=== PATIENT | female | born 1975 | race Two or more races ===

== ENCOUNTER 2022-08-15 09:43 | Emergency (ER) | payer MEDICAID, OTHER ==
[~2022-08-15] VITALS: Ht 170.2 cm; Wt 93.5 kg
[2022-08-15 10:49] VITALS: BP 135/71
[2022-08-15 11:02] LABS: Urine Bacteria FEW /hpf (None Seen); Urine Blood TRACE /uL (Negative); Urine Mucus FEW (None Seen); Urine Specific Gravity 1.018 (1.001-1.035); Urine WBC 4 /hpf (0 - 5)
[2022-08-15] MEDS ORDERED: ACYC-166 PO (11:22)
[2022-08-15] MEDS ORDERED: IBUP800T27 PO (11:22)
[2022-08-15] MEDS ORDERED: BACDST PO (11:22)
== END 2022-08-15 11:27 | disposition home or self-care (01) ==
LOC: ER 09:43
DX: B02.9 Zoster without complications (principal); N39.0 Urinary tract infection, site not specified; Z79.899 Other long term (current) drug therapy
CPT/HCPCS: 71045; 81001

== ENCOUNTER 2023-04-07 08:17 | Emergency (ER) | payer MEDICAID ==
[~2023-04-07] VITALS: Ht 170.2 cm; Wt 95.9 kg
[~2023-04-07 08:17] MED LIST: ACYC1TAB3 PO; BACDST PO; IBUP-1456 PO
[2023-04-07 09:14] LABS: Basophils # (auto) 0.1 10 ^3/uL (0-0.2); Eosinophils # (auto) 0.1 10 ^3/uL (0-0.8); Eosinophils % (auto) 1.4 % (0.0-7.0); Hemoglobin 15.6 g/dL (12.2-16.2); Lymphocytes # (auto) 2.2 10 ^3/uL (0.4-5.4); Lymphocytes % (auto) 25.8 % (10.0-50.0); Mean Corpuscular Hgb Conc. 33.9 g/dL (32.0-36.0); Mean Corpuscular Volume 88.4 fL (80.0-100.0); Monocytes # (auto) 0.7 10 ^3/uL (0-1.3); Monocytes % (auto) 7.9 % (0.0-12.0); Neutrophils # (auto) 5.5 10 ^3/uL (1.6-8.6); Neutrophils % (auto) 63.9 % (37.0-80.0); Nucleated Red Blood Cells % 0.1 %; Red Cell Distribution Width 13.6 % (11.8-14.3); White Blood Cell 8.5 10^3/uL (4.4-10.8)
[2023-04-07 09:24] LABS: Urine Bacteria NONE SEEN /hpf (None Seen); Urine Blood Negative /uL (Negative); Urine Clarity CLOUDY (Clear); Urine Color Colorless (Yellow); Urine Protein, UAD TRACE (Negative); Urine Specific Gravity 1.037 (1.001-1.035); Urine Sperm PRESENT /hpf (None Seen); Urine Urobilinogen Normal (Negative); Urine WBC 21 /hpf (0 - 5); Urine pH 5.5 (5.0-8.0)
[2023-04-07 09:26] LABS: Alanine Aminotransferase 74 U/L (7-40); Albumin 4.4 g/dL (3.2-4.8); Alkaline Phosphatase 139 U/L (46-116); Anion Gap 8 (5-15); Aspartate Aminotransferase 41 U/L (13-40); Blood Urea Nitrogen 16 mg/dL (9-23); Calcium 9.5 mg/dL (8.5-10.1); Carbon Dioxide 26 mmol/L (20-30); Chloride 100 mmol/L (98-107); Potassium 4.4 mmol/L (3.5-5.1); Sodium 134 mmol/L (136-145)
[2023-04-07 09:27] LABS: Bilirubin, Total 0.8 mg/dL (0.2-1.0); Total Protein 7.2 g/dL (5.7-8.2)
[2023-04-07 09:32] LABS: Glucose 408 mg/dL (74-106)
[2023-04-07] MEDS ORDERED: CIPR-173 PO (09:40)
[2023-04-07] MEDS ORDERED: SODIUM CHLORIDE 0.9% 1,000 ML IV ONE (09:45)
[2023-04-07] MEDS ORDERED: cefTRIAXone 1GM/50ML D5W 50 ML IV ONE (09:45)
[2023-04-07 10:50] LABS: Lipase 48 U/L (12-53)
[2023-04-07 10:52] VITALS: BP 122/77; PULSE 72; RESP 15; TEMP 98; O2SAT 99
== END 2023-04-07 10:56 | disposition home or self-care (01) ==
LOC: ER 08:17
DX: N39.0 Urinary tract infection, site not specified (principal); R10.2 Pelvic and perineal pain; I10 Essential (primary) hypertension; E11.9 Type 2 diabetes mellitus without complications; E78.5 Hyperlipidemia, unspecified; Z98.890 Other specified postprocedural states; Z79.1 Long term (current) use of non-steroidal anti-inflammatories (NSAID); Z79.899 Other long term (current) drug therapy
CPT/HCPCS: 36415; 76705; 80053; 81001; 83690; 84702; 85025; 96365; 99285; J0696

== ENCOUNTER 2023-09-10 09:25 | Emergency (ER) | payer MEDICAID ==
[~2023-09-10] VITALS: Ht 170.2 cm; Wt 90.0 kg
[~2023-09-10 09:25] MED LIST changes: +CIPR-173 PO
[2023-09-10] MEDS ORDERED: NAP500T PO (11:27)
[2023-09-10 11:41] VITALS: BP 121/87; PULSE 74; RESP 12; TEMP 97.8; O2SAT 99
== END 2023-09-10 11:55 | disposition home or self-care (01) ==
LOC: ER 09:25
DX: R51.9 Headache, unspecified (principal); I10 Essential (primary) hypertension; E11.9 Type 2 diabetes mellitus without complications; E78.5 Hyperlipidemia, unspecified

== ENCOUNTER 2024-04-08 09:36 | Emergency (ER) | payer MEDICAID ==
[~2024-04-08] VITALS: Ht 170.2 cm; Wt 88.4 kg
[~2024-04-08 09:36] MED LIST changes: +NAP500T PO
[2024-04-08] MEDS ORDERED: ERY05OO OP (10:30)
[2024-04-08] MEDS ORDERED: KETO0.5S31 EACHEYE (10:30)
--- NOTE | 2024-04-08 10:30 | ED.PDOC ---
Eye-HPI HPI Comments Presents for pink eye reports her daughter had same symptoms last week Chief Complaint: Eye Problem Time Seen by MD: 10:16 Primary Care Provider: ANASTACIA Reviewed Notes: Nurses Notes, Medications, Allergies Allergies: Coded Allergies: NO KNOWN ALLERGIES (Unverified , 08/15/22) Home Meds Active Scripts Erythromycin (Erythromycin) 5 Mg/Gm Oin, 1 APPLIC OP TID for 10 Days, #5 GRAMS 0 Refills Prov:BAILEY MAS NP 04/08/24 Ketorolac Tromethamine (Ophth) (Ketorolac Tromethamine) 0.5 % Anuja, 1 DROP EACHEYE QID for 2 Days, #5 ML 0 Refills Prov:BAILEY MAS NP 04/08/24 Naproxen (NAPROSYN TABLET) 500 Mg Tb, 1 TAB PO BIDPC for 30 Days, #60 TAB 0 Refills Prov:BAILEY MAS NP 09/10/23 Ciprofloxacin Hcl (Cipro) 500 Mg Tab, 1 TAB PO BID, #14 TAB Prov:PARVIN SANTILLAN MD 04/07/23 Sulfamethoxazole W/Trimethopri (Bactrim Ds Tablet) 1 Tab Tb, 1 TAB PO BID for 7 Days, #14 TAB Prov:MERRITT COSTELLO 08/15/22 Acyclovir (Acyclovir) 800 Mg Tab, 800 MG PO 5 TIMES , #35 TAB Prov:MERRITT COSTELLO 08/15/22 Ibuprofen (Ibuprofen) 800 Mg Tab, 1 TAB PO TID, #30 TAB Prov:MERRITT COSTELLO 08/15/22 Information Source: Patient Mode of Arrival: Ambulatory Past Medical History PAST MEDICAL HISTORY: DM, High Lipids, HTN 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 Hx Family History Family History: Family hx of DM, Family hx of HTN Social History Smoker: Non-Smoker Alcohol: Denies ETOH Use Drugs: Denies Drug Use Lives In: Home All Other Systems: Reviewed and Negative (Per HPI) Physical Exam General Appearance: No Apparent Distress, Normal HEENT: Normal ENT Inspection, PERRL/EOMI (Conjunctival injection), Pharynx Normal, TMs Normal Neck: Full Range of Motion, Non-Tender, Normal, Normal Inspection Respiratory: Chest Non-Tender, Lungs Clear, No Accessory Muscle Use, No Respiratory Distress, Normal Breath Sounds Cardiovascular: No Edema, No JVD, No Murmur, No Gallop, Normal Peripheral Pulses, Regular Rate/Rhythm Breast Exam: Deferred Gastrointestinal: No Organomegaly, Non Tender, No Pulsatile Mass, Normal Bowel Sounds, Soft Genitalia: Deferred Pelvic: Deferred Rectal: Deferred Extremities: No calf tenderness, Normal capillary refill, Normal inspection, Normal range of motion, Non-tender, No pedal edema Musculoskeletal : Apperance: Normal Neurologic: Alert, broadcast producer II-XII nml as Tested, No Motor Deficits, Normal Affect, Normal Mood, No Sensory Deficits Cerebellar Function: Normal Reflexes: Normal Skin: Dry, Normal Color, Warm Lymphatic: No Adenopathy Was a procedure done? Was a procedure done?: No EENT DIFF Eye: Allergic, Bacterial, Viral, Other X-Ray, Labs, Meds, VS Vital Signs Date Time Temp Pulse Resp B/P (MAP) Pulse Ox O2 Delivery O2 Flow Rate FiO2 04/08/24 10:38 98.4 96 16 143/72 (95) 96 98.4 04/08/24 10:38 96 16 96 Room Air 04/08/24 10:00 98.4 96 16 143/72 (95) 96 X-Ray, Labs, Meds, VS Comment On reevaluation, patient had symptomatic improvement. Patient is stable for discharge at this time. External notes reviewed. Test results and diagnostic imaging interpreted. All diagnostic findings, discharge care, education and instructions provided Follow-up with PCP in 2 to 3 days Patient verbalized understanding and agreed to treatment plan Vital signs stable, afebrile, no acute distress noted Patient ambulatory with strong steady gait Advised to return precautions for any new or worsening symptoms, return to ER immediately for re-evaluation Patient is aware that the purpose of this visit was for an acute medical emerge ncy requiring emergent stabilization. Chronic conditions, including malignancies have not been ruled out. Patient is instructed to follow up with PCP as directed and discharge instructions for continued care and workup. If unable to arrange follow-up, patient is to return to the emergency department for reassessment. Patient (parent or legal guardian if applicable) was given verbal and written discharge instructions and acknowledges understanding. Time of 1ST Reevaluation: : Reevaluation 1ST: Improved Patient Education/Counseling: Diagnosis, Treatment Family Education/Counseling: Diagnosis, Treatment Departure 1 Departure Time of Disposition: 10:29 Impression: Primary Impression: Conjunctivitis Qualified Codes: H10.33 - Unspecified acute conjunctivitis, bilateral Disposition: HOME / SELF CARE / HOMELESS Condition: Stable e-Prescriptions Erythromycin (Erythromycin) 5 Mg/Gm Oin 1 APPLIC OP TID for 10 Days, #5 GRAMS 0 Refills Prov: BAILEY MAS NP 04/08/24 Ketorolac Tromethamine (Ophth) (Ketorolac Tromethamine) 0.5 % Anuja 1 DROP EACHEYE QID for 2 Days, #5 ML 0 Refills Prov: BAILEY MAS NP 04/08/24 Discharged With: Self Critical Care Note Critical Care Time?: No Stability Stability form required: No Heart Score Heart Score: Heart Score Response (Comments) Value History N/A 0 EKG N/A 0 Age N/A 0 Risk Factors N/A 0 Troponin N/A 0 Total 0 BAILEY MAS NP Apr 08, 2024 10:30
[2024-04-08 10:38] VITALS: BP 143/72; PULSE 96; RESP 16; TEMP 98.4; O2SAT 96
== END 2024-04-08 10:40 | disposition home or self-care (01) ==
LOC: ER 09:36
DX: H10.9 Unspecified conjunctivitis (principal); E11.9 Type 2 diabetes mellitus without complications; E78.5 Hyperlipidemia, unspecified; I10 Essential (primary) hypertension; Z79.899 Other long term (current) drug therapy; Z98.890 Other specified postprocedural states